=== PATIENT | male | born 1940 | race Caucasian/White ===

== ENCOUNTER 2021-09-06 20:48 | Emergency (ER) | payer BC ==
[2021-09-06 20:58] VITALS: BP 115/59; PULSE 81; RESP 20; TEMP 97.8
[2021-09-06] MEDS ORDERED: DIPH,PERTUS(ACELL)TETVAC-LF 0.5 ML VIAL IM ONE (22:46)
[2021-09-06] MEDS ORDERED: LIDOCAINE 1% INJ 10MG/ML (5 ML VIAL-PF) SQ STA (22:46)
--- NOTE | 2021-09-06 23:42 | ED ---
Fall HPI - General Chief Complaint: Fall Stated Complaint: Fall-Facial lac Time Seen by Provider: 09/06/21 22:30 Source: patient, family Mode of arrival: wheelchair - History of Present Illness Initial Comments: 81-year-old male presents to emergency Department with head injury. States that he tripped up some concrete steps and fell on his right side. He hit his head on the grill and hit his right knee on the syruper stones. He denies losing consciousness. Patient is not on any anticoagulation. No headaches or visual changes. No unilateral numbness or weakness. Continues to have full normal range of motion in his right knee without any difficulties walking. No confusion. No speech difficulties. Patient did sustain a laceration over the right eyebrow and therefore presents for laceration repair. No other alleviating, precipitating or modifying factors - Related Data Allergies Allergy/AdvReac Type Severity Reaction Status Date / Time No Known Allergies Allergy Verified 09/06/21 20:58 Review of Systems ROS Statement: Those systems with pertinent positive or pertinent negative responses have been documented in the HPI. ROS Other: All systems not noted in ROS Statement are negative. Past Medical History Past Medical History: Hypertension Past Surgical History: No Surgical Hx Reported Past Psychological History: No Psychological Hx Reported Smoking Status: Never smoker Past Alcohol Use History: Occasional Past Drug Use History: None Reported General Exam Limitations: no limitations General appearance: alert, in no apparent distress Head exam: Present: normocephalic, other (hematoma right forehead with central laceration measuring 2 cm. mild oozing. no underlying bony fracture appreciated) Eye exam: Present: normal appearance, PERRL, EOMI. Absent: scleral icterus, conjunctival injection, periorbital swelling ENT exam: Present: normal exam, mucous membranes moist Neck exam: Present: normal inspection. Absent: tenderness, meningismus, lymphadenopathy Respiratory exam: Present: normal lung sounds bilaterally. Absent: respiratory distress, wheezes, rales, rhonchi, stridor Cardiovascular Exam: Present: regular rate, normal rhythm, normal heart sounds. Absent: systolic murmur, diastolic murmur, rubs, gallop, clicks GI/Abdominal exam: Present: soft, normal bowel sounds. Absent: distended, tenderness, guarding, rebound, rigid Extremities exam: Present: normal inspection, full ROM, normal capillary refill. Absent: tenderness, pedal edema, joint swelling, calf tenderness Back exam: Present: normal inspection Neurological exam: Present: alert, oriented X3, CN II-XII intact Psychiatric exam: Present: normal affect, normal mood Skin exam: Present: warm, dry, intact, normal color. Absent: rash Course Vital Signs 09/06/21 20:53 Temperature 97.8 F Pulse Rate 81 Respiratory 20 Rate Blood Pressure 115/59 O2 Sat by Pulse 96 Oximetry Procedures - Laceration Laceration #1 Consent Obtained: verbal consent Indication: laceration Site: face Size (cm): 2 Description: linear Depth: simple, single layer Anesthetic Used: lidocaine 1% Anesthesia Technique: local infiltration Amount (mls): 5 Pre-repair: wound explored, irrigated extensively, deep structures intact Type of Sutures: nylon Size of Sutures: 6-0 Number of Sutures: 3 Technique: simple, interrupted Patient Tolerated Procedure: well, no complications Medical Decision Making - Medical Decision Making Upon arrival patient was placed into room 1. Thorough history and physical exam was performed. I did recommend CT of the head and neck as well as a knee x-ray. Patient refused. States that he would like laceration repair and a tetanus shot as he does not move his last one. Understands the risks of not pursuing imaging and accepts these risks. Patient is awake, alert and capable of making his own decisions without any signs of confusion. I did repair the patient's right scalp laceration using 3, 6-0 nylon sutures. Patient is instructed that these must be removed in 5-7 days. Return to the emergency room for any new or worsening symptoms. Patient agreed was discharged home in stable condition Disposition Clinical Impression: Fall, Concussion without loss of consciousness, Facial laceration, Abrasion of right knee Disposition: HOME SELF-CARE Condition: Stable Instructions (If sedation given, give patient instructions): Diphtheria/Acellular Pertussis/Tetanus Vaccine (By injection), Care For Your Stitches (ED), Facial Laceration (ED) Additional Instructions: Please take Tylenol for pain. Follow up with your primary care doctor or return here for stitch removal in 5-7 days. Return for any new or worsening symptoms Is patient prescribed a controlled substance at d/c from ED?: No Referrals: Nonstaff,Physician [Primary Care Provider] - 1-2 days Time of Disposition: 23:42
== END 2021-09-06 23:56 | disposition home or self-care (01) ==
LOC: EC 20:48
DX: S06.0X0A Concussion without loss of consciousness, initial encounter (principal); S01.81XA Laceration without foreign body of other part of head, initial encounter; S80.211A Abrasion, right knee, initial encounter; R40.2412 Glasgow coma scale score 13-15, at arrival to emergency department; Z23 Encounter for immunization; W01.0XXA Fall on same level from slipping, tripping and stumbling without subsequent striking against object, initial encounter
CPT/HCPCS: 90715; 99283; 12001; 90471; J2001